=== PATIENT | female | born 1945 | race Caucasian/White ===

== ENCOUNTER 2023-11-30 10:24 | Outpatient (RCR) | payer MEDICARE, OTHER, SELFPAY | END 2023-11-30 23:59 | disposition home or self-care (01) | LOC: CRHB 10:24 | PROVIDERS: ATTENDING PHYSICIAN Internal Medicine Cardiovascular Disease | DX: Z95.4 Presence of other heart-valve replacement (principal) | CPT/HCPCS: G0422; G0423 ==

== ENCOUNTER → 2024-01-01 09:13 | Day surgery (SDC) | payer MEDICARE, OTHER, SELFPAY ==
[2024-01-01 10:06] VITALS: BMI 22.6
--- NOTE | 2024-01-01 12:06 | ITS.CL.CARDI ---
Environmental Emergencies Assistant - Cardioversion
Cardioversion
Procedure Report:
Procedure: BENOIT-guided electrical cardioversion
Pre-operative diagnosis: Persistent atrial fibrillation
Post-operative diagnosis: Persistent atrial fibrillation status post DC cardioversion to sinus rhythm
Anesthesia: MAC
Attending Physician: Paul Berkowitz MD
Procedure Description: The patient was brought to the electrophysiology laboratory in the fasting state. Informed consent was obtained from the patient prior to the start of the procedure. Adherence to anticoagulation was confirmed. Electrodes were
placed on the patient and connected to an external defibrillator. Monitoring of blood pressure, ECG tracings, and pulse oximetry was initiated. The pads were applied to the patient in the anterior and posterior positions. The patient was sedated by
the anesthesiologist. A BENOIT (reported separately) was performed prior to the cardioversion. No left atrial or left atrial appendage thrombus was seen. After the BENOIT probe was removed, a 200 joule biphasic synchronized shock was delivered to the
patient under MAC anesthesia. Sinus rhythm was successfully restored. The patient recovered uneventfully from MAC anesthesia. There were no immediate post-procedure complications. The patient left the lab in good condition. The attending physician
was present throughout the entire procedure.
Impression: Successful BENOIT-guided direct current cardioversion with muslim of sinus rhythm after one 200 joule biphasic synchronized shock.
== END ==
LOC: CATH 09:13
PROVIDERS: ATTENDING PHYSICIAN Internal Medicine Cardiovascular Disease; FAMILY PHYSICIAN Family Medicine; OTHER PHYSICIAN Internal Medicine Cardiovascular Disease
DX: I48.19 Other persistent atrial fibrillation (principal); I08.1 Rheumatic disorders of both mitral and tricuspid valves; Z79.01 Long term (current) use of anticoagulants; K21.9 Gastro-esophageal reflux disease without esophagitis; Z87.891 Personal history of nicotine dependence; Z79.82 Long term (current) use of aspirin
CPT/HCPCS: 93312; 93320; 93325; 92960; 93005

== ENCOUNTER 2024-01-07 19:19 | Emergency (ER) | payer MEDICARE, OTHER, SELFPAY ==
[2024-01-07 19:22] VITALS: BP 174/99
--- NOTE | 2024-01-07 20:35 | ED.GENMED ---
History of Present Illness
General
Chief Complaint: Fatigue
Time Seen by Provider: 01/07/24 20:34
Travel History
Have you had any contact with someone who has COVID-19?: No
Do you have any symptoms of coronavirus? Fever > 100 degrees, chills, cough, shortness of breath, sore throat, loss of taste or smell, muscle aches, or headache?: No
History of Present Illness
History of Present Illness:
HPI: Patient presents due to fatigue and weakness. Patient recently stopped metoprolol and amiodarone after cardioversion. More recently she has been having high blood pressure readings. Dr. Caldwell told her to go back on the amiodarone.
Today she had systolics in the 170s to 190s range. She also reports heart rates in the 40s. She did have some chest pain earlier in the day as well as some discomfort in the right posterolateral neck. Those symptoms have resolved
EXAM:
GENERAL: Well appearing in no distress with initial blood pressure of 174/99, heart rates in the 70s currently
HEENT: Moist oral mucosa
CARDIOVASCULAR: 1 out of 6 systolic murmur heard in the upper sternal borders, murmurs, normal heart rate and rhythm, No chest wall tenderness
NECK: There is mild tenderness to the muscular inferior to the mastoid on the right side
PULMONARY: No respiratory distress, breath sounds are clear and equal
ABDOMEN: Soft with no peritoneal signs, no tenderness
NEUROLOGIC: Excellent strength all extremities, no coordination deficits
PSYCHIATRIC: Appropriate mental status, normal insight and judgement
EXTREMITIES: Nontender, no edema, moves all extremities equally
SKIN: No rash, no lesions
ED COURSE:
8:40 AM: I initially evaluated patient
NUMBER AND COMPLEXITY OF PROBLEMS ADDRESSED AT THE ENCOUNTER
� Chronic conditions affecting care: Aortic stenosis, A-fib, has had bowel obstruction, diverticulitis/colitis, GERD, anxiety
� Acute Exacerbation and/or Progression of Chronic Illness: This is an acute problem
� Differential Diagnosis includes: Labile hypertension, ACS
AMOUNT AND/OR COMPLEXITY OF DATA TO BE REVIEWED AND ANALYZED
� I performed an independent evaluation of and my interpretation is:
EKG: Sinus 74, left axis deviation/LAFB, borderline LVH
CT:
X-rays:
Laboratory Studies: CBC, chemistries, unremarkable troponin 0.029
Other:
� Review of other/old records: I reviewed records. The patient had cardioversion for A-fib on 01/01/[address] Myers
� Clinical information was obtained by an independent historian: None needed
� Prescriptions/Medications Considered but not given:
� Further testing considered but not performed:
RISK OF COMPLICATIONS AND/OR MORBIDITY OR MORTALITY OF PATIENT MANAGEMENT
� Social determinants of health affecting care: Lives at home
� Discussion with other providers: I discussed case with cardiology, Dr. Dolan who agrees with plan of adding losartan
� Escalation of care including admission/observation vs risk of discharge considered: The patient is very well-appearing. Will add a dose of oral losartan here as she did have bradycardia with systolics of 170s to 190s. Repeat
blood pressure has improved somewhat slightly to 159/92. The patient appears very comfortable on reassessment at 9:50 PM.
Past History
Past History
ED Past Medical History: Other (Back pain, headaches, migraines, diverticulosis, chronic UTI's)
ED Past Surgical History: Bowel resection (Hemicolectomy in 1981 for ruptured diverticulum, surgery for lysis of adhesions) and Orthopedic (Laminectomy in 1989)
Social History
Tobacco: Non-smoker
Alcohol: None
Drug: None
Personal:
Living: alone
Employment: Retired
Phy Exam
Physical Exam
Physical Exam:
See HPI
Course
Orders/Labs/Results
Orders:
Orders
01/07/24 19:29
Electrocardiogram (*1) Urgent
Reason for Study: Fatigue / Weakness
EKG- Treatment ONCE
01/07/24 20:44
Losartan [Cozaar] 25 mg PO NOW STA
01/07/24 20:51
Complete Blood Count/With Diff Urgent
Comprehensive Metabolic Panel Urgent
Troponin I Urgent
01/07/24 21:13
Apixaban [Eliquis] 5 mg PO NOW STA
Abnormal Lab Results
01/07/24
20:51
Absolute Monos (auto) 0.7 H 10^3/uL
(0.1-0.6)
Monocytes % 9.5 H %
(1.7-9.3)
BUN 23 H mg/dl
(7-17)
01/07/24 20:51
01/07/24 20:51
Vital Signs
Initial and Last Documented VS:
Initial Vital Signs
Temp Pulse BP Pulse Ox
98.2 F 78 174/99 99
01/07/24 19:22 01/07/24 19:22 01/07/24 19:22 01/07/24 19:22
Last Documented Vital Signs
Temp Pulse Resp BP Pulse Ox
98.2 F 67 18 159/92 98
01/07/24 19:22 01/07/24 21:00 01/07/24 21:00 01/07/24 21:00 01/07/24 20:54
*Critical Care Note
Total Time (30-74mins, 75-104mins- exclusive of procedures): Not Applicable
ED Attending Note
-
Portions of this chart may have been created with voice recognition software.� Occasional wrong word or��sound alike� substitutions may have occurred due to the inherent limitations of voice recognition software.
Discharge Plan
Departure
Patient Disposition: Home (Routine Discharge)
Date of Disposition: 01/07/24
Time of Disposition: 21:51
Patient with high blood pressure during this ER visit?: Yes
Discharge Problem:
HBP (high blood pressure)
Instructions: BLOOD PRESSURE
Prescriptions:
New
losartan 25 mg tablet
25 mg PO DAILY Qty: 30 0RF
No Action
trazodone 50 MG tablet
50 mg PO HS
polyethylene glycol 3350 [Miralax] 17 gram/dose Powder
17 g PO DAILY
PreserVision AREDS-2 250-90-40-1 mg Capsule
1 tab PO QPM
cholecalciferol (vitamin D3) [Vitamin D3] 25 mcg (1,000 unit) Capsule
25 mcg PO QPM
Eliquis 5 mg Tablet
5 mg PO BID Qty: 60 2RF
furosemide [Lasix] 20 mg tablet
20 mg PO DAILY Qty: 30 2RF
metoprolol succinate 25 mg Tablet Extended Release 24 Hr
12.5 mg PO DAILY Qty: 30 2RF
amiodarone 200 mg Tablet
200 mg PO BID
Referrals:
Alberto Ashford MD [Family Provider] -
Roxanna Caldwell MD [Active] -
Activity Restrictions/Additional Instructions:
I sent a prescription for low-dose losartan to your pharmacy. Dr. Dolan agreed with this. Continue your other medications. Return here if worse.
Interventions
Interventions:
*Risk Screen - Suicide Last Done: 01/07/24 19:23
*General Assessment Last Done: 01/07/24 19:23
*Neglect/Abuse Screening Last Done: 01/07/24 19:23
*ED COVID-19 Vaccine History Last Done: 01/07/24 19:23
[2024-01-07 20:53] VITALS: BP 165/85
[2024-01-07 20:54] VITALS: BP 165/85; BMI 22.5
[2024-01-07 21:00] VITALS: BP 159/92
[2024-01-07 21:00] LABS: % Basophils 1.2 % (0-2); % Immature Granulocytes 0.4 % (0-0.5); % Lymphocytes 22.8 % (20.5-51.1); % Monocytes 9.5 % (1.7-9.3); % Neutrophils 63.1 % (42.2-75.2); Absolute Basophils 0.1 10^3/uL (0-0.2); Absolute Eosinophils 0.2 10^3/uL (0-0.7); Absolute Lymphocytes 1.6 10^3/uL (1.2-3.4); Absolute Monocytes 0.7 10^3/uL (0.1-0.6); Absolute Neutrophils 4.4 10^3/uL (1.4-6.5); Hematocrit 38.2 % (37.0-47.0); Hemoglobin 12.8 g/dL (12.0-16.0); Mean Corp Hgb Conc. 33.5 g/dL (33.0-37.0); Mean Corpuscular Hgb 28.1 pg (27.0-31.0); Mean Platelet Volume 8.6 fL (7.4-10.4); Nucleated Red Blood Cells % 0 %; Platelet Count 217 10^3/uL (130-400); Red Blood Cell Count 4.55 10^6/uL (4.20-5.40); Red Cell Dist. Width 14.5 % (11.5-14.5); White Blood Cell Count 6.9 10^3/uL (4.8-10.8)
[2024-01-07] MEDS: COZAAR 25 MG PO (21:00)
[2024-01-07] MEDS: ELIQUIS 5 MG PO (21:23)
[2024-01-07 21:26] LABS: ALT (SGPT) 29 U/L (0-35); AST (SGOT) 29 U/L (14-36); Albumin 4.1 g/dl (3.5-5.0); Alkaline Phosphatase 104 U/L (38-126); Blood Urea Nitrogen 23 mg/dl (7-17); Calcium 9.4 mg/dl (8.4-10.2); Carbon Dioxide 29 mmol/L (22-30); Chloride 99 mmol/L (98-107); Estimated Creatinine Clearance 61 ml/min; Glucose 97 mg/dl (70-99); Potassium 3.9 mmol/L (3.5-5.1); Sodium 136 mmol/L (135-145); Total Bilirubin 0.6 mg/dl (0.2-1.3); Total Protein 6.5 g/dl (6.3-8.2); eGFR > 60.00
[2024-01-07 21:28] LABS: Troponin I 0.029 ng/ml
[2024-01-07 21:36] VITALS: BP 160/93
[2024-01-07 22:01] VITALS: BP 165/78
== END 2024-01-07 22:42 | disposition home or self-care (01) ==
LOC: EMR 19:19
PROVIDERS: Emergency Medicine; EMERGENCY PHYSICIAN Emergency Medicine; FAMILY PHYSICIAN Family Medicine
DX: I10 Essential (primary) hypertension (principal); I48.91 Unspecified atrial fibrillation; K21.9 Gastro-esophageal reflux disease without esophagitis; I35.0 Nonrheumatic aortic (valve) stenosis; K56.609 Unspecified intestinal obstruction, unspecified as to partial versus complete obstruction; F41.9 Anxiety disorder, unspecified
CPT/HCPCS: 99284; 80053; 84484; 85025; 93005

== ENCOUNTER → 2024-02-05 09:45 | Outpatient (REF) | payer MEDICARE, OTHER, SELFPAY ==
[2024-02-05 10:13] LABS: % Basophils 1.4 % (0-2); % Eosinophils 3.4 % (0-6); % Immature Granulocytes 0.5 % (0-0.5); % Lymphocytes 18.3 % (20.5-51.1); % Monocytes 8.4 % (1.7-9.3); Absolute Basophils 0.1 10^3/uL (0-0.2); Absolute Eosinophils 0.2 10^3/uL (0-0.7); Absolute Lymphocytes 1.1 10^3/uL (1.2-3.4); Absolute Monocytes 0.5 10^3/uL (0.1-0.6); Absolute Neutrophils 3.9 10^3/uL (1.4-6.5); Hematocrit 38.6 % (37.0-47.0); Hemoglobin 12.4 g/dL (12.0-16.0); Mean Corp Hgb Conc. 32.1 g/dL (33.0-37.0); Mean Corpuscular Hgb 28.8 pg (27.0-31.0); Mean Corpuscular Volume 89.6 fL (81.0-99.0); Mean Platelet Volume 9.1 fL (7.4-10.4); Nucleated Red Blood Cells % 0 %; Platelet Count 217 10^3/uL (130-400); Red Blood Cell Count 4.31 10^6/uL (4.20-5.40); White Blood Cell Count 5.8 10^3/uL (4.8-10.8)
[2024-02-05 10:38] LABS: ALT (SGPT) 26 U/L (0-35); AST (SGOT) 27 U/L (14-36); Albumin 4.2 g/dl (3.5-5.0); Alkaline Phosphatase 88 U/L (38-126); Blood Urea Nitrogen 33 mg/dl (7-17); Calcium 8.9 mg/dl (8.4-10.2); Carbon Dioxide 30 mmol/L (22-30); Chloride 101 mmol/L (98-107); Glucose 88 mg/dl (70-99); HDL Cholesterol 63 mg/dl; LDL Cholesterol, Calculated 90 mg/dl; Sodium 136 mmol/L (135-145); Total Bilirubin 0.7 mg/dl (0.2-1.3); Total Cholesterol 165 mg/dl (50-199); Total Protein 6.7 g/dl (6.3-8.2); Triglyceride 61 mg/dl (10-149); Very Low Density Lipoprotein 12 mg/dl (0-30); eGFR > 60.00
[2024-02-05 10:53] LABS: Free T4 1.79 ng/dl (0.78-2.19)
[2024-02-05 11:07] LABS: TSH 1.67 uIU/ml (0.47-4.68)
[2024-02-05 11:10] LABS: Hepatitis B Surface Antigen Negative (Negative)
[2024-02-05 11:28] LABS: Hepatitis B Core Ab, Total Negative (Negative); Hepatitis B Surface Antibody Negative
[2024-02-07 23:08] LABS: HBV Quant by NAAT IU/mL Not Detected; HBV Quant by NAAT Interp Not Detected (Not Detected); HBV Quant by NAAT Log IU/mL Not Detected log IU/mL
== END ==
LOC: REG 09:45
PROVIDERS: ATTENDING PHYSICIAN Family Medicine
DX: E78.2 Mixed hyperlipidemia (principal); Z13.29 Encounter for screening for other suspected endocrine disorder; Z11.59 Encounter for screening for other viral diseases
CPT/HCPCS: 36415; 80053; 80061; 84439; 84443; 85025; 86704; 86706; 87340; 87517